=== PATIENT | female | born 1975 | race Caucasian/White ===

== ENCOUNTER 2016-10-21 23:31 | Emergency (ER) | payer BC ==
[2016-10-22 00:32] LABS: RBC URINE 46 /hpf (0-3); URINE BACTERIA RARE (<OCC); URINE BILIRUBIN NEGATIVE (NEGATIVE); URINE BLOOD 2+ (NEGATIVE); URINE COLOR Yellow (YELLOW); URINE GLUCOSE (UA) NORMAL (Normal); URINE KETONE NEGATIVE (NEGATIVE); URINE LEUKOCYTE ESTERASE 2+ Leu/uL (Negative); URINE PROTEIN 1+ mg/dL (NEGATIVE); URINE UROBILINOGEN NORMAL mg/dL (0.2-1.0); WBC URINE 55 /hpf (0-5)
[2016-10-22 00:34] LABS: BASO # 0.1 K/uL (0.0-0.2); BASO % 0.6 % (0.0-2.0); EOS % 0.3 % (0.0-4.0); HEMATOCRIT 40.4 % (34.0-47.0); LYMPH % 13.6 % (20.0-40.0); MEAN CORPUSCULAR HEMOGLOBIN 28.2 pg (27.0-31.0); MEAN CORPUSCULAR HGB CONC 32.4 g/dL (33.0-37.0); MEAN PLATELET VOLUME 8.6 fL (7.2-11.7); MONO # 0.7 K/uL (0.0-0.8); MONO % 4.5 % (0.0-10.0); NRBC % 0.1 % (0.0-2.0); RED CELL DISTRIBUTION WIDTH 13.9 % (11.5-14.5); WHITE BLOOD COUNT 14.8 K/uL (4.8-10.8)
[2016-10-22 00:46] LABS: CHLORIDE 97 mmol/L (98-107)
[2016-10-22 00:47] LABS: POTASSIUM 4.1 mmol/L (3.6-5.2); SODIUM 137 mmol/L (132-148)
[2016-10-22 00:49] LABS: ALB/GLOB RATIO 1.4 (1.0-2.1); ALKALINE PHOSPHATASE 79 U/L (38-126); ALT/SGPT 17 U/L (9-52); AST/SGOT 32 U/L (14-36); BILIRUBIN,TOTAL 0.6 mg/dL (0.2-1.3); BLOOD UREA NITROGEN 15 mg/dL (7-17); CARBON DIOXIDE 25 mmol/L (22-30); GFR AFRICAN-AMERICAN > 60; GLUCOSE,RANDOM 117 mg/dL (65-105); TOTAL PROTEIN 7.7 g/dL (6.3-8.3)
[2016-10-22 00:50] LABS: CALCIUM 8.9 mg/dl (8.6-10.4)
[2016-10-22] MEDS ORDERED: Sodium Chloride 0.9% 1,000 ML IV ONE (02:04)
--- NOTE | 2016-10-22 02:24 | C.PDOC ---
History Of Present Illness 41 year old female presents to the ER with complaints of sharp, intermittent, left flank and lower back pain that began today, associated with nausea and vomiting. Patient states she has a PMHx of kidney stones and reports this pain being similar to priorepisodes. She denies fever, diarrhea, vaginal bleeding, vaginal discharge, dysuria/hematuria. Time Seen by Provider: 10/21/16 23:58 Chief Complaint (Nursing): Back Pain History Per: Patient History/Exam Limitations: no limitations Onset/Duration Of Symptoms: Hrs (Began today), Intermittent Episodes Current Symptoms Are (Timing): Still Present Quality Of Discomfort: Sharp, "Pain" Severity: Moderate Previous Symptoms: Other (Kidney stones) Associated Symptoms: Other (Nausea, vomiting) Exacerbating Factor(s): Nothing Past Medical History Reviewed: Historical Data, Nursing Documentation, Vital Signs Vital Signs: Last Vital Signs Temp 98 F 10/22/16 03:34 Pulse 80 10/22/16 03:34 Resp 20 10/22/16 03:34 BP 129/76 10/22/16 03:34 Pulse Ox 98 10/22/16 03:34 - Medical History PMH: Migraine Surgical History: No Surg Hx Family History: States: No Known Family Hx - Social History Hx Alcohol Use: Yes Hx Substance Use: No - Immunization History Hx Tetanus Toxoid Vaccination: No Hx Influenza Vaccination: Yes Hx Pneumococcal Vaccination: No Review Of Systems Except As Marked, All Systems Reviewed And Found Negative. Constitutional: Negative for: Fever, Chills Cardiovascular: Negative for: Chest Pain, Palpitations Respiratory: Negative for: Cough, Shortness of Breath Gastrointestinal: Positive for: Nausea, Vomiting. Negative for: Abdominal Pain , Diarrhea Genitourinary: Negative for: Dysuria, Hematuria, Vaginal Discharge, Vaginal Bleeding Musculoskeletal: Positive for: Back Pain (Lower), Other (Left Flank Pain) Physical Exam - Physical Exam Appears: Well, Non-toxic, Other (in mild pain) Skin: Normal Color, Warm, Dry Head: Normacephalic Oral Mucosa: Moist Cardiovascular: Rhythm Regular Respiratory: Normal Breath Sounds, No Rales, No Rhonchi, No Wheezing Gastrointestinal/Abdominal: Normal Exam, Bowel Sounds, Soft, No Tenderness Back: Normal Inspection, No CVA Tenderness Neurological/Psych: Oriented x3 ED Course And Treatment - Laboratory Results Result Diagrams: 10/22/16 00:31 10/22/16 00:31 O2 Sat by Pulse Oximetry: 100 (Room air) Pulse Ox Interpretation: Normal - CT Scan/US ct abd/pelvis Other Rad Studies (CT/US): Read By Radiologist, Radiology Report Reviewed CT/US Interpretation: Name: FELI CHE Age: 41Years F Date: 10/22/2016. Requesting Physician: JOEL POPE : 1975. [facility] Procedure Ordered As Accession Number of. Images. CT ABDOMEN/PELVIS. WO. CT ABD PELVIS W O PO OR IV. CONT. [id number]. J. 629. Provided Clinical History: LEFT FLANK PAIN, H/O KIDNEY STONES. Page 1 of 2. EXAM: CT Abdomen and Pelvis Without Intravenous Contrast. CLINICAL HISTORY: 41 years old, female; Pain; Abdominal pain; Additional info: Left flank pain, h/o kidney stones. TECHNIQUE: Axial computed tomography images of the abdomen and pelvis without intravenous contrast. This. CT exam was performed using one or more of the following dose reduction techniques: automated. exposure control, adjustment of the mA and/or kV according to patient size, and/or use of iterative. reconstruction technique. Coronal and sagittal reformatted images were created and reviewed. COMPARISON: CT - ABD PELVIS W/O PO OR IV CONT 2015 10:44:32 PM. FINDINGS: Lower thorax: No acute findings. ABDOMEN: Liver : Unremarkable. Gallbladder and bile ducts: Unremarkable. No calcified stones. No ductal dilation. Pancreas: Unremarkable. No ductal dilation. Spleen: Unremarkable. No splenomegaly. Adrenals: Unremarkable. No mass. Kidneys and ureters: A 6 mm x 7 mm proximal left renal ureterolith causes moderate left. hydroureteronephrosis.There is mild left perinephric and periureteric induration. Infection not. excluded. Stone is located at the L2-3 level and can be seen on the transport manager film. Bilateral. nonobstructing renal urolithiasis. Stomach and bowel: Unremarkable. No obstruction. No mucosal thickening. Appendix: Normal appendix. FELI CHE | Preliminary Radiology Report. BRASS BUFFER (QA) DISCREPANCY? If there is a discrepancy between the preliminary and final interpretation, please notify [facility] via [email or web address]. If you do not have access to our QA portal, call our QA team at [phone]. CONFIDENTIALITY STATEMENT. This report is intended only for the use of the referring physician, and only in accordance with law, If you received this in error, call [phone]. Page 2 of 2. PELVIS: Bladder: Incomplete urinary bladder distention with prominent wall. Pericystic induration. Cystitis not. excluded. Correlate with urinalysis.This may be reactive. Reproductive: 4.5 cm left ovarian cyst which is almost certainly benign. Recommend pelvic. ultrasound. ABDOMEN and PELVIS: Intraperitoneal space: Unremarkable. No free air. No significant fluid collection. Bones/joints: No acute fracture. No dislocation. Soft tissues: Unremarkable. Vasculature: Unremarkable. No abdominal aortic aneurysm. Lymph nodes: Unremarkable. No enlarged lymph nodes. IMPRESSION: A 6 mm x 7 mm proximal left renal ureterolith causes moderate left hydroureteronephrosis. Bilateral nonobstructing renal urolithiasis. Left ovarian cyst. Thank you for allowing us to participate in the care of your patient. Dictated and Authenticated by: Fanny Taylor MD Progress Note: Blood work, UA, Upreg and CT scan abd/pelvis ordered and reviewed. Patient given IV NS bolus, IV toradol and IV zofran. Reevaluation Time: 03:30 Reassessment Condition: Improved (Patient reassessed, is resting comfortably, in no current pain/distress. On exam, abdomen is soft and nontender. UA shows ? UTI vs contaminant (large amount of epithelial cells and only few bacteria), PO Cipro given as well as PO Flomax. Explained to patient that her CT scan shows left sided 6x7mm stone, and that at this size she is unlikely to pass the stone on her own. Patient understands but prefers to be discharged home with medications and to follow up with urology as outpatient. She was instructed to return to ER immediately if symptoms worsen/return.) Disposition Counseled Patient/Family Regarding: Studies Performed, Diagnosis, Need For Followup, Rx Given - Disposition Referrals: [facility] [Outside] [facility] [Outside] Robbie Pak Jr., MD [Staff Provider] - Disposition: HOME/ ROUTINE Disposition Time: 03:30 Condition: STABLE Additional Instructions: USTED NECESITA SEGUIR CON [place] DENTRO DE 1 SEMANA USO FLOMAX DIARIO DEVUELVA A LA JUNAID DE EMERGENCIA SI LOS SNTOMAS EMPEORARAN Prescriptions: Ciprofloxacin [Cipro] 1 tab PO BID #14 tab Hydrocodone/Acetaminophen [Hydrocodon-Acetaminophen 5-325] 1 each PO Q6 PRN #15 tablet PRN Reason: Pain, Moderate (4-7) Tamsulosin [Flomax] 0.4 mg PO DAILY #5 cap Instructions: Kidney Stones (ED), Renal Colic (ED) Print Language: MOHAWK - POA Present On Arrival: None - Clinical Impression Clinical Impression: Kidney stone on left side, Renal colic on left side - Scribe Statement The provider has reviewed the documentation as recorded by the Scribbladimir Ibarra All medical record entries made by the Scribe were at my direction and personally dictated by me. I have reviewed the chart and agree that the record accurately reflects my personal performance of the history, physical exam, medical decision making, and the department course for this patient. I have also personally directed, reviewed, and agree with the discharge instructions and disposition.
[2016-10-22 03:37] VITALS: BP 129/76; PULSE 80; RESP 20; TEMP 98
--- NOTE | 2016-10-22 10:53 | CT ---
PROCEDURE: CT Abdomen and Pelvis without intravenous contrast HISTORY: LEFT FLANK PAIN, H/O KIDNEY STONES By history, negative test (concurrent with this examination). COMPARISON: 03/01/2016. TECHNIQUE: Unenhanced study. Neither oral nor intravenous contrast administered. . Radiation dose: Total exam DLP = 942.05 mGy-cm. This CT exam was performed using one or more of the following dose reduction techniques: Automated exposure control, adjustment of the mA and/or kV according to patient size, and/or use of iterative reconstruction technique. FINDINGS: LOWER THORAX: Unremarkable. LIVER: Unremarkable. No gross lesion or ductal dilatation. GALLBLADDER AND BILE DUCTS: Unremarkable. PANCREAS: Unremarkable. No gross lesion or ductal dilatation. SPLEEN: Unremarkable. ADRENALS: Unremarkable. No mass. KIDNEYS AND URETERS: Unilateral, left obstructive uropathy related to proximal calculus 6 x 7 mm mm. Proximal hydroureter, hydronephrosis is mild. Residual lower pole calculus left kidney. Nonobstructing upper tract calculi and right VASCULATURE: Unremarkable. No aortic aneurysm. BOWEL: Unremarkable. No obstruction. No gross mural thickening. APPENDIX: Unremarkable. Normal appendix. PERITONEUM: Unremarkable. No free fluid. No free air. LYMPH NODES: Unremarkable. No enlarged lymph nodes. BLADDER: Unremarkable. REPRODUCTIVE: 4.6 cm left adnexal cysts. BONES: No acute fracture. OTHER FINDINGS: None. IMPRESSION: Obstructive uropathy related to 6 x 7 mm proximal left ureteral calculus. Additional nonobstructing subcentimeter calculi identified in both kidneys. Simple cyst 4.6 cm left adnexa. Concordant results (preliminary interpretation) provided by [employer]. Procedure Completed: 01:40 Preliminary ([facility]) Report: Dictated and Authenticated: 02:19. Final Interpretation: 10:51 October 22, 2016.
[2016-10-23 02:14] VITALS: O2SAT 100
== END 2016-10-22 03:34 | disposition home or self-care (01) ==
LOC: C.ER 23:31
DX: N13.2 Hydronephrosis with renal and ureteral calculous obstruction (principal)
CPT/HCPCS: 74176; 80053; 81001; 83690; 84703; 85025; 87086; 96361; 96374; 96375; 99283; J1885; J2405; J7040